=== PATIENT | male | born 1970 | race Caucasian/White ===

== ENCOUNTER 2023-11-09 10:33 | Emergency (ER) | payer MEDICAID ==
[~2023-11-09] VITALS: Ht 172.7 cm; Wt 95.3 kg
[2023-11-09 10:33] VITALS: BP_SYST 142; PULSE 100; RESP 18; TEMP 97.3; O2SAT 100
[2023-11-09 11:24] LABS: BASOPHILS % (AUTO) 0.7 % (0.0-2.0); EOSINOPHILS # (AUTO) 0.1 K/uL (0.0-0.4); EOSINOPHILS % (AUTO) 0.8 % (0.0-4.0); HEMATOCRIT 40.7 % (36-54); HEMOGLOBIN 13.6 g/dL (14.0-18.0); LYMPHOCYTES # (AUTO) 0.8 K/uL (1.0-5.5); MEAN CORPUSCULAR HEMOGLOBIN 30 pg (27-31); MEAN CORPUSCULAR HGB CONC 33 % (32-36); MEAN CORPUSCULAR VOLUME 91 fL (79.0-98.0); MONOCYTES # (AUTO) 0.6 K/uL (0.0-1.0); MONOCYTES % (AUTO) 8.5 % (1.7-9.3); PLATELET COUNT (AUTO) 343 K/uL (130-430); RED BLOOD CELL COUNT(AUTO) 4.47 MIL/uL (4.2-6.2); RED CELL DISTRIBUTION WIDTH 13.3 % (9.0-15.0); WHITE BLOOD COUNT (AUTO) 7.5 K/uL (4.8-10.8)
[2023-11-09 11:36] LABS: ALBUMIN 4.7 g/dL (3.4-4.8); BILIRUBIN,DIRECT 0.1 mg/dL (0.0-0.3); CALCIUM 10.7 mg/dL (8.4-11.0); CREATININE 1.99 mg/dL (0.55-1.30); POTASSIUM 4.1 mmol/L (3.5-5.1); PROTHROMBIN TIME 10.3 SECS (9.5-12.5); TOTAL BILIRUBIN 0.6 mg/dL (0.0-1.0); TOTAL PROTEIN, SERUM 9.1 g/dL (6.4-8.3)
[2023-11-09] MEDS: ONDANSETRON 4 MG ODT TAB PO ONE (11:54)
[2023-11-09 13:38] LABS: BILIRUBIN,URINE NEGATIVE (NEGATIVE); BLOOD, URINE NEGATIVE (NEGATIVE); COLOR,URINE YELLOW (YELLOW); GLUCOSE,URINE 3+ (NEGATIVE); KETONES,URINE NEGATIVE (NEGATIVE); LEUKOCYTE ESTERASE ,URINE NEGATIVE (NEGATIVE); NITRITE, URINE NEGATIVE (NEGATIVE); PROTEIN URINE TRACE (NEGATIVE); UROBILINOGEN,URINE 0.2 (0.2-1.0)
[2023-11-09 13:41] LABS: CLARITY/URINE HAZY (CLEAR)
[2023-11-09 14:00] LABS: BACTERIA,URINE RARE /HPF (None Seen); RBC,URINE 0-3 /HPF (0-3); WBC,URINE NONE SEEN /HPF (0-3)
[2023-11-09] MEDS ORDERED: ONDA-8 TL (14:35)
[2023-11-09] MEDS ORDERED: OMEP20CA15 PO (14:35)
[2023-11-09 14:39] VITALS: BP_SYST 160; PULSE 96; RESP 18; TEMP 97.2; O2SAT 99
== END 2023-11-09 14:49 | disposition home or self-care (01) ==
LOC: SED 10:33
DX: K29.70 Gastritis, unspecified, without bleeding (principal); R11.10 Vomiting, unspecified; R10.9 Unspecified abdominal pain; E11.9 Type 2 diabetes mellitus without complications
CPT/HCPCS: 99284; 74176; 80076; 80048; 81001; 82150; 83690; 85025; 85610; 85730; 86886; 86900; 86901; 84484; 36415; Q0162; 81000; 81015